=== PATIENT | female | born 1970 ===

== ENCOUNTER 2018-07-03 10:50 | Emergency (ER) | payer OTHER ==
[2018-07-03 11:03] VITALS: BMI 29.2
[2018-07-03] MEDS ORDERED: TDAP Vaccine 0.5 mL Syr IM ONE (11:35)
--- NOTE | 2018-07-03 13:37 | RAD ---
Date of service: 07/03/2018 PROCEDURE: Right Foot Radiographs. HISTORY: puncture wound plantar aspect 4th metatarsal COMPARISON: None. FINDINGS: BONES: Normal. No fracture. JOINTS: Normal. SOFT TISSUES: Normal. OTHER FINDINGS: None. IMPRESSION: Negative study
[2018-07-03 15:05] LABS: BLOOD UREA NITROGEN 18 mg/dL (7-21); CALCIUM 9.3 mg/dL (8.4-10.5); GFR NON-AFRICAN AMERICAN > 60
[2018-07-03] MEDS ORDERED: Cefepime 1gm in NS 100ml 1 GM/100 ML BAG IVPB STA (15:33)
--- NOTE | 2018-07-03 15:33 | ED PDOC ---
Arrival/HPI - General Chief Complaint: Lower Extremity Problem/Injury Time Seen by Provider: 07/03/18 11:34 Historian: Patient - History of Present Illness Narrative History of Present Illness (Text): 07/03/18 16:22 48yr old female with hx of DM and lupus presents today with puncture wound to right foot after stepping on arabella nail. pt states that the nail went through the rubber soled sandal and into the plantar aspect of the foot. pt unsure of last tetanus shot. incident occurred prior to arrival. pt denies fever/chills. denies numbness, weakness, tingling in the extremity. pt is c/o throbbing pain to the plantar aspect of the foot at the site of the puncture. no other complaints. Time/Duration: Prior to Arrival Past Medical History - Provider Review Nursing Documentation Reviewed: Yes - Travel History Have you recently traveled outside [place] w/in the past 3 mons?: No - Tetanus Immunization Tetanus Immunization: Unknown - Endocrine/Metabolic Hx Endocrine Disorders: Yes Hx Diabetes Mellitus Type 2: Yes Hx Systemic Lupus Erythematosus: Yes - Musculoskeletal/Rheumatological Hx Musculoskeletal Disorders: Yes Hx Rheumatoid Arthritis: Yes - Psychiatric Hx Substance Use: No - Surgical History Hx Section: Yes Hx Hysterectomy: Yes Family/Social History - Physician Review Nursing Documentation Reviewed: Yes Family/Social History: Unknown Family HX Smoking Status: Light Smoker < 10 Cigarettes Daily Hx Alcohol Use: No Hx Substance Use: No Allergies/Home Meds Allergies/Adverse Reactions: Allergies ciprofloxacin [From Cipro] Allergy (Verified 07/03/18 11:01) URTICARIA Home Medications: Home Meds Medication Instructions Recorded Confirmed Glimepiride [Amaryl] 2 mg PO DAILY 07/03/18 07/03/18 Hydroxychloroquine Sulfate 200 mg PO BID 07/03/18 07/03/18 [Plaquenil] Insulin Glargine,Hum.rec.anlog 30 unit SQ DAILY 07/03/18 07/03/18 [Basaglar Kwikpen U-100] metFORMIN [glucOPHAGE] 500 mg PO BID 07/03/18 07/03/18 Review of Systems - Review of Systems Constitutional: absent: Fatigue, Fevers Respiratory: absent: SOB, Cough Cardiovascular: absent: Chest Pain, Palpitations Gastrointestinal: absent: Abdominal Pain, Nausea, Vomiting Musculoskeletal: Arthralgias Skin: Other (puncture wound) Psychiatric: absent: Anxiety, Depression Physical Exam Vital Signs Reviewed: Yes Vital Signs Temp Pulse Resp BP Pulse Ox 07/03/18 17:15 98.8 F 76 16 131/72 99 07/03/18 16:00 82 18 129/76 99 07/03/18 14:00 88 18 139/78 98 07/03/18 11:03 98.1 F 92 H 18 135/85 97 Temperature: Afebrile Blood Pressure: Normal Pulse: Regular Respiratory Rate: Normal Appearance: Positive for: Well-Appearing, Non-Toxic, Comfortable Pain Distress: None Mental Status: Positive for: Alert and Oriented X 3 - Systems Exam Head: Present: Atraumatic Mouth: Present: Moist Mucous Membranes Respiratory/Chest: Present: Clear to Auscultation Cardiovascular: Present: Regular Rate and Rhythm Lower Extremity: Present: NORMAL PULSES, Normal ROM, Tenderness (right foot; there is a small pinpoint puncture wound noted to the plantar aspect of the foot approximately over the distal aspect of the 4th Metatarsal. no erythema; no edema, no ecchymosis; sensation and distal pulses intact. cap refill <2. ), Neurovascularly Intact, Capillary Refill < 2 s. No: CALF TENDERNESS, Swelling, Erythema, Deformity Neurological: Present: GCS=15, Speech Normal Skin: Present: Warm, Dry, Normal Color Psychiatric: Present: Alert, Oriented x 3 Medical Decision Making ED Course and Treatment: 07/03/18 12:06 Patient nontoxic well-appearing no distress with stable vital signs complaining of a puncture wound to the right foot by arabella nail. case discussed with infectious disease DR. 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 Patient with a puncture wound through a rubber sole into the plantar aspect of the foot due to concern for pseudomonas infection in a diabetic with lupus. He advised ONE dose of 100mg of gentamycin IV and 1 dose of cefapime 1gm IV after checking kidney function. then discharge home with augmentin tetanus updated. motrin given for pain. xray; no FB no fx wound irrigated well with high pressure irrigation. bacitracin and dressing applied. bmp; cr; wnl glucose; elevated 07/03/18 15:45 pt started on gentamicin IV and Cefepime IV. pt was advised to take abx as prescribed and f/u with hand folder within the next 2 days. advised patient that she is at high risk for infection being a diabetic and needs to monitor her wound for any signs of infection. Patient verbalizes understanding of discharge instructions and need for immediate followup. all aspects of this case were discussed the attending of record. impression; puncture wound, foot motrin every 6 hours as needed for pain. Augmentin 1 tablet twice daily x 10 days. keep wound clean and dry apply bacitracin twice daily follow up with the hand folder within the next 2 days Follow up with the primary care physician within the next 2 days. Return immediately if symptoms worsen, persist or if new symptoms develop: high fevers, increasing pain, redness, swelling or purulent discharge develop. - Lab Interpretations Lab Results: 07/03/18 14:45 Lab Results 07/03/18 17:20: POC Glucose (mg/dL) 157 H 07/03/18 14:45: Sodium 141, Potassium 3.9, Chloride 103, Carbon Dioxide 26, Anion Gap 16, BUN 18, Creatinine 0.6 L, Est GFR ( Amer) > 60, Est GFR ( Non-Af Amer) > 60, Random Glucose 182 H, Calcium 9.3 - RAD Interpretation Radiology Orders: 07/03/18 11:48 FOOT RIGHT 3 VIEWS ROUTINE [RAD] Stat - Medication Orders Current Medication Orders: Discontinued Medications Gentamicin Sulfate 100 mg/ (Sodium Chloride) 102.5 mls @ 200 mls/hr IVPB STAT STA PRN Reason: Protocol Stop: 07/03/18 15:40 Last Admin: 07/03/18 16:30 Dose: 200 mls/hr eMAR Start Stop Document 07/03/18 16:30 SZA (Rec: 07/03/18 16:30 ELLA [id number]) Intravenous Solution Start Date 07/03/18 Start Time 16:30 End Date 07/03/18 End time 17:00 Total Infusion Time 30 Cefepime HCl (Maxipime 1gm) 1 gm in 100 mls @ 100 mls/hr IVPB STAT STA PRN Reason: Protocol Stop: 07/03/18 16:32 Last Admin: 07/03/18 15:55 Dose: 100 mls/hr eMAR Start Stop Document 07/03/18 15:55 ELLA (Rec: 07/03/18 15:55 ELLA [id number]) Intravenous Solution Start Date 07/03/18 Start Time 15:55 End Date 07/03/18 End time 16:30 Total Infusion Time 35 Ibuprofen (Motrin Tab) 600 mg PO STAT STA Stop: 07/03/18 11:36 Last Admin: 07/03/18 12:18 Dose: 600 mg MAR Pain/Vitals Document 07/03/18 12:18 ELLA (Rec: 07/03/18 12:18 ELLA [id number]) Pain Reassessment Is This A Pain ReAssessment? No Sleep Is patient sleeping during reassessment? No Presence of Pain Presence of Pain Yes Tetanus/Reduced Diphtheria/Acell Pertussis (Boostrix Vaccine Inj) 0.5 ml IM .ONCE ONE Stop: 07/03/18 11:36 Last Admin: 07/03/18 12:19 Dose: 0.5 ml Immunization Registry Document 07/03/18 12:19 ELLA (Rec: 07/03/18 12:19 ELLA [id number]) Immunization Registry Consent Date 07/03/18 Disposition/Present on Arrival - Present on Arrival Any Indicators Present on Arrival: No History of DVT/PE: No History of Uncontrolled Diabetes: No Urinary Catheter: No History of Decub. Ulcer: No History Surgical Site Infection Following: None - Disposition Have Diagnosis and Disposition been Completed?: Yes Diagnosis: Puncture wound of foot Disposition: HOME/ ROUTINE Disposition Time: 15:00 Patient Plan: Discharge Condition: GOOD Discharge Instructions (ExitCare): Wound Care (DC) Additional Instructions: motrin every 6 hours as needed for pain. Augmentin 1 tablet twice daily x 10 days. keep wound clean and dry apply bacitracin twice daily follow up with the hand folder within the next 2 days Follow up with the primary care physician within the next 2 days. Return immediately if symptoms worsen, persist or if new symptoms develop: high fevers, increasing pain, redness, swelling or purulent discharge develop. Prescriptions: Amoxicillin/Clavulanate [Augmentin 875 MG-125 MG] 1 tab PO BID #20 tab Ibuprofen [Motrin] 600 mg PO Q6H PRN #20 tab PRN Reason: pain/fever reduction Referrals: Maxwell Garcia DPM [Staff Provider] - Follow up with primary Mauricio Mccullough DPM [Staff Provider] - Follow up with primary Tri Reilly DPM [Staff Provider] - Follow up with primary [facility] [Outside] - Follow up with primary Rubia Spear MD [Medical Doctor] - Follow up with primary [facility] [Outside] - Follow up with primary Forms: [employer] (Telugu), WORK NOTE
[2018-07-03 18:26] VITALS: O2SAT 99
[2018-07-03 18:29] VITALS: BP 131/72; PULSE 76; RESP 16; TEMP 98.8
[2018-07-03] MEDS ORDERED: Cefepime 1gm in NS 100ml 1 GM/100 ML BAG IVPB SCH (22:00)
== END 2018-07-03 17:30 | disposition home or self-care (01) ==
LOC: ED 10:50
DX: S91.331A Puncture wound without foreign body, right foot, initial encounter (principal); W45.0XXA Nail entering through skin, initial encounter; E11.9 Type 2 diabetes mellitus without complications; M32.9 Systemic lupus erythematosus, unspecified; F17.210 Nicotine dependence, cigarettes, uncomplicated; M06.9 Rheumatoid arthritis, unspecified; Z23 Encounter for immunization
CPT/HCPCS: 73630; 80048; 82948; 90471; 90715; 96365; 96367; 99284; J0692; J1580